=== PATIENT | male | born 1985 | race Hispanic/Latino ===

== ENCOUNTER 2018-04-13 17:43 | Emergency (ER) | payer OTHER ==
[2018-04-13 17:45] VITALS: BP 156/72; RESP 16; TEMP 98; O2SAT 100
--- NOTE | 2018-04-13 19:48 | ED PDOC ---
HPI: Psych/Substance Abuse Time Seen by Provider: 04/13/18 17:43 Chief Complaint (Nursing): Alcohol Ingestion Chief Complaint (Provider): Alcohol ingestion History Per: Patient History/Exam Limitations: no limitations Onset/Duration Of Symptoms: Mins (just prior to arrival) Current Symptoms Are (Timing): Still Present Severity: Moderate Additional Complaint(s): 32 year old male with no pertinent past medical history is brought into the ED by EMS for alcohol intoxication as he was found to have an unsteady gait. Patient admits to drinking alcohol today. Patient offers no complaints. PMD: None provided Past Medical History Reviewed: Historical Data, Nursing Documentation, Vital Signs Vital Signs: Last Vital Signs Temp 98 F 04/13/18 17:44 Pulse 105 H 04/13/18 17:44 Resp 16 04/13/18 17:44 BP 156/72 H 04/13/18 17:44 Pulse Ox 100 04/13/18 17:44 HOLLY Report Viewed: Yes - Medical History PMH: No Chronic Diseases - Family History Family History: States: No Known Family Hx - Social History Current smoker - smoking cessation education provided: No Alcohol: Social Drugs: Cannabis - Allergies Allergies/Adverse Reactions: Allergies Allergy/AdvReac Type Severity Reaction Status Date / Time cefaclor [[facility] Allergy URTICARIA Verified 04/13/18 17:43 Review of Systems ROS Statement: Except As Marked, All Systems Reviewed And Found Negative Physical Exam - Reviewed Nursing Documentation Reviewed: Yes Vital Signs Reviewed: Yes - Physical Exam Appears: Positive for: Well, Non-toxic, No Acute Distress Head Exam: Positive for: ATRAUMATIC, NORMOCEPHALIC Skin: Positive for: Normal Color, Warm, Dry Eye Exam: Positive for: Normal appearance Cardiovascular/Chest: Positive for: Regular Rate, Rhythm Respiratory: Positive for: Normal Breath Sounds Neurologic/Psych: Positive for: Alert, Oriented (3x), Gait (steady and unassisted) - ECG O2 Sat by Pulse Oximetry: 100 (RA) Pulse Ox Interpretation: Normal Medical Decision Making Medical Decision Makin:43 Initial impression: 32 year old male with alcohol intoxication Initial plan: * glucose * reevaluation Finger stick: 117 20:30 Upon reevaluation, patient is awake, alert, and orientedx3. Gait is steady and unassisted. Patient still offers no complaints. Patient is requesting to be discharged. Scribe Attestation: Documented byNika Schneider, acting as a scribe for Satya Gifford Provider Scribe Attestation: All medical record entries made by the Scribe were at my direction and personally dictated by me. I have reviewed the chart and agree that the record accurately reflects my personal performance of the history, physical exam, medical decision making, and the department course for this patient. I have also personally directed, reviewed, and agree with the discharge instructions and disposition. Disposition - Clinical Impression Clinical Impression: Alcohol intoxication - Patient ED Disposition Is Patient to be Admitted: No - Disposition Disposition: Routine/Home Disposition Time: 20:30 Condition: STABLE Instructions: Alcohol Use - When Is Drinking a Problem? Forms: [employer] (Mosotho)
[2018-04-13 20:51] VITALS: PULSE 90
== END 2018-04-13 20:56 | disposition home or self-care (01) ==
LOC: H.ER 17:43
DX: F10.129 Alcohol abuse with intoxication, unspecified (principal); Z88.1 Allergy status to other antibiotic agents